=== PATIENT | female | born 1950 | race Caucasian/White ===

== ENCOUNTER → 2017-06-11 | Outpatient (REF) | payer MEDICARE, OTHER ==
[2017-06-13 00:07] LABS: Lyme Disease IgG/IgM Antibodie <0.91 ISR (0.00-0.90); Lyme Disease IgM Ab Quantitati <0.80 index (0.00-0.79)
== END ==
LOC: M LAB REF 12:29
PROVIDERS: ATTEND Internal Medicine
DX: R53.83 Other fatigue (principal)

== ENCOUNTER → 2019-07-11 | Outpatient (REF) | payer MEDICARE, OTHER | LOC: M LAB REF 15:51 | PROVIDERS: ATTEND Radiology Diagnostic Radiology | DX: C44.521 Squamous cell carcinoma of skin of breast (principal) ==

== ENCOUNTER → 2021-05-17 | Outpatient (CLI) | payer MEDICARE, OTHER ==
--- NOTE | 2021-05-17 15:43 | REPMRS ---
Patient History The patient states she had a clinical breast exam in February 2021. Patient is postmenopausal and has history of other cancer at age 65. No known family history of cancer. Benign US guided breast biopsy of the left breast, July 11, 2019. Patient states no breast complaints today. Patient has signed MRS History Sheet. Digital Woman Screen Mammo: May 17, 2021 - Exam #: [id number] Bilateral CC and MLO view(s) were taken. Technologist: Monika Saini, Technologist Prior study comparison: July 11, 2019, left breast diagnostic unilateral mammo, performed at [facility]. July 11, 2019, left breast ultrasound, performed at [facility]. July 07, 2019, bilateral digital mammo screening bilat, performed at [facility]. April 03, 2018, bilateral digital mammo screening bilat, performed at [facility]. Screening. Digital screening (2D) mammography was performed bilaterally in the CC and MLO projections. Additionally, breast tomosynthesis (3D mammography) was performed bilaterally in the CC and MLO projections. Todays exam was compared to the prior exam/exams. By history, the patient has no complaints of a palpable breast abnormality or other significant breast complaints. The breasts are unchanged in size and shape. Once again, dense heterogenous fibroglandular elements are seen bilaterally in a stable appearing pattern but to such a degree that the sensitivity of the mammogram in detecting cancer is decreased..There are no justice-soft tissue densities or spiculated masses. There is no internal architectural distortion. Once again, stable benign appearing calcifications are seen.There are no suspicious justice-calcific clusters. Skin thickening or nipple retraction is not present. IMPRESSION: BI-RADS Category 2- Benign Findings. There is no evidence of malignant alteration of the breasts. Followup examination recommended in one year. The Volpara volumetric breast density category is C, the breasts are heterogenously dense which may obscure small masses. This mammogram was read with the assistance of [employer],an FDA approved computer aided detection system for mammography. The lifetime Tyrer-Cuzick score is 5.2 % Due to the density of the breasts or Tyrer Cuzick score of 20% or greater, MRI/whole breast screening ultrasound is warranted. Negative x-ray reports should not delay surgical consultation if a dominant or clinically suspicious mass is present. Not all breast cancers can be identified by mammography. Therefore, we recommend that you continue to perform regular breast self-examination and physical examination and then promptly contact your physician of any concerns or changes. Adenosis and dense breasts may obscure an underlying neoplasm. Assessment: BI-RADS/ACR category 2 mammogram. Benign Findings. Recommendation Routine screening mammogram of both breasts in 1 year. Electronically Signed By: Jordi Garcia DO 05/17/21 [id number]
== END ==
LOC: M WHC 14:37
PROVIDERS: ATTEND Internal Medicine
DX: Z12.31 Encounter for screening mammogram for malignant neoplasm of breast (principal); Z78.0 Asymptomatic menopausal state; Z85.89 Personal history of malignant neoplasm of other organs and systems; Z86.018 Personal history of other benign neoplasm; R92.1 Mammographic calcification found on diagnostic imaging of breast

== ENCOUNTER → 2021-06-15 | Outpatient (CLI) | payer MEDICARE, OTHER ==
[~2021-06-15] MED LIST: ACET650T61 PO; BUPR150T12 PO; CITA20TA6 PO; LISI20TA33 PO; MULTTAB12 PO; ROSU5TAB5 PO; ULTR5TAB PO
== END ==
LOC: M LABSMTC 09:46
PROVIDERS: ATTEND Anesthesiology
DX: Z20.828 Contact with and (suspected) exposure to other viral communicable diseases (principal); Z11.59 Encounter for screening for other viral diseases

== ENCOUNTER 2021-06-20 08:52 | Day surgery (SDC) | payer MEDICARE, OTHER ==
[~2021-06-20] VITALS: Ht 157.5 cm; Wt 67.6 kg
[~2021-06-20 08:52] MED LIST changes: +NS 1,000 ML IV ONE
[2021-06-20] MEDS ORDERED: LIDOCAINE 2% 100MG/5ML SDV (FOR ANES.) As Ordered ONE (09:35)
[2021-06-20] MEDS ORDERED: propofoL 200 MG/20 ML VIAL As Ordered ONE (09:36)
--- NOTE | 2021-06-20 09:59 | ROOR ---
Patient Name: Bette Silva Procedure Date: 06/20/2021 9:35 AM Date of : 1950 Age: 71 Room: [facility] Gender: Female Note Status: Finalized Procedure: Colonoscopy Indications: High risk colon cancer surveillance: Personal history of colonic polyps Providers: Ang Bernabe Jr, MD Referring MD: Amanda GONZALEZ MD Requesting Provider: Medicines: Propofol per Anesthesia Complications: No immediate complications. Procedure: Pre-Anesthesia Assessment: - Prior to the procedure, a History and Physical was performed, and patient medications and allergies were reviewed. The patient is competent. The risks and benefits of the procedure and the sedation options and risks were discussed with the patient. All questions were answered and informed consent was obtained. Patient identification and proposed procedure were verified by the physician and the nurse in the pre-procedure area and in the procedure room. Mental Status Examination: alert and oriented. Airway Examination: normal oropharyngeal airway and neck mobility. Respiratory Examination: clear to auscultation. CV Examination: normal. ASA Grade Assessment: II - A patient with mild systemic disease. After reviewing the risks and benefits, the patient was deemed in satisfactory condition to undergo the procedure. The anesthesia plan was to use moderate sedation / analgesia (conscious sedation). Immediately prior to administration of medications, the patient was re-assessed for adequacy to receive sedatives. The heart rate, respiratory rate, oxygen saturations, blood pressure, adequacy of pulmonary ventilation, and response to care were monitored throughout the procedure. The physical status of the patient was re-assessed after the procedure. The Colonoscope was introduced through the anus and advanced to the cecum, identified by appendiceal orifice and ileocecal valve. The colonoscopy was performed without difficulty. The patient tolerated the procedure well. The quality of the bowel preparation was adequate. Findings: The rectum, descending colon, transverse colon, ascending colon, cecum, appendiceal orifice and ileocecal valve appeared normal. Two polyps were found in the recto-sigmoid colon and sigmoid colon. The polyps were small in size. These polyps were removed with a cold snare. Resection and retrieval were complete. Multiple small and large-mouthed diverticula were found in the sigmoid colon. Impression: - The rectum, descending colon, transverse colon, ascending colon, cecum, appendiceal orifice and ileocecal valve are normal. - Two small polyps at the recto-sigmoid colon and in the sigmoid colon, removed with a cold snare. Resected and retrieved. - Diverticulosis in the sigmoid colon. Recommendation: - Discharge patient to home (ambulatory). - Repeat colonoscopy in 5 years for surveillance. Procedure Code(s): --- Professional --- 84045, Colonoscopy, flexible; with removal of tumor(s), polyp(s), or other lesion(s) by snare technique Diagnosis Code(s): --- Professional --- Z86.010, Personal history of colonic polyps K63.5, Polyp of colon K57.30, Diverticulosis of large intestine without perforation or abscess without bleeding CPT copyright 2019 [employer]. All rights reserved. The codes documented in this report are preliminary and upon wheel filler review may be revised to meet current compliance requirements. Ang Bernabe MD Ang Bernabe Jr, MD 06/20/2021 9:59:13 AM Electronically signed by Ang Bernabe Jr, MD Number of Addenda: 0 Note Initiated On: 06/20/2021 9:35 AM Estimated Blood Loss: Estimated blood loss: none. Estimated blood loss: none.
[2021-06-20 10:15] VITALS: BP 139/66
== END 2021-06-20 10:40 | disposition home or self-care (01) ==
LOC: M OPP 08:52
PROVIDERS: ATTEND Surgery
DX: Z12.11 Encounter for screening for malignant neoplasm of colon (principal); Z86.010 Personal history of colon polyps; K63.5 Polyp of colon; K57.30 Diverticulosis of large intestine without perforation or abscess without bleeding; Z79.899 Other long term (current) drug therapy; Z87.891 Personal history of nicotine dependence

== ENCOUNTER → 2022-06-19 | Outpatient (CLI) | payer MEDICARE, OTHER ==
[~2022-06-19] MED LIST changes: -NS 1,000 ML IV ONE
== END ==
LOC: M WHC 07:03
PROVIDERS: ATTEND Internal Medicine
DX: Z12.31 Encounter for screening mammogram for malignant neoplasm of breast (principal); R92.2 Inconclusive mammogram

== ENCOUNTER → 2023-03-24 | Outpatient (REF) | payer MEDICARE, OTHER | LOC: M LAB REF 12:34 | PROVIDERS: ATTEND Internal Medicine | DX: M19.90 Unspecified osteoarthritis, unspecified site (principal) ==

== ENCOUNTER → 2023-03-25 | Outpatient (CLI) | payer MEDICARE, OTHER | LOC: M PLAIMG 11:35 | PROVIDERS: ATTEND Internal Medicine | DX: M54.50 Low back pain, unspecified (principal); N39.0 Urinary tract infection, site not specified ==

== ENCOUNTER → 2023-06-29 | Outpatient (CLI) | payer MEDICARE, OTHER | LOC: M WHC 12:51 | PROVIDERS: ATTEND Internal Medicine | DX: Z12.31 Encounter for screening mammogram for malignant neoplasm of breast (principal); Z13.820 Encounter for screening for osteoporosis; Z78.0 Asymptomatic menopausal state ==

== ENCOUNTER → 2023-07-07 | Outpatient (REF) | payer MEDICARE, OTHER | LOC: M LAB REF 16:21 | PROVIDERS: ATTEND Internal Medicine | DX: R74.8 Abnormal levels of other serum enzymes (principal); K76.0 Fatty (change of) liver, not elsewhere classified ==

== ENCOUNTER → 2023-07-08 | Outpatient (REF) | payer MEDICARE, OTHER ==
[2023-07-08 12:35] LABS: APPEARANCE, URINE CLEAR (CLEAR); BACTERIA, URINE AUTO NEGATIVE (NEGATIVE); BILIRUBIN, URINE AUTO NEGATIVE (NEGATIVE); BLOOD, URINE BLOOD NEGATIVE (NEGATIVE); COLOR, URINE YELLOW (YELLOW); GLUCOSE, URINE (UA) AUTO NEGATIVE (NEGATIVE); KETONE, URINE AUTO NEGATIVE (NEGATIVE); LEUKOCYTE ESTERASE, URINE AUTO NEGATIVE (NEGATIVE); NITRITE, URINE AUTO NEGATIVE (NEGATIVE); PROTEIN, URINE AUTO NEGATIVE (NEGATIVE); RBC, URINE AUTO 1 /HPF (0-3); SQUAMOUS EPITHELIAL CELL UR AU 0 /HPF (0-6); UROBILINOGEN, URINE AUTO 0.2 mg/dL (0.0-2.0); WBC, URINE AUTO 0 /HPF (0-3)
== END ==
LOC: M LAB REF 12:04
PROVIDERS: ATTEND Internal Medicine
DX: R31.9 Hematuria, unspecified (principal)

== ENCOUNTER → 2024-07-15 | Outpatient (CLI) | payer MEDICARE, OTHER ==
[~2024-07-15] MED LIST changes: +ROSU5TAB40 PO; -ROSU5TAB5 PO
== END ==
LOC: M WHC 13:04
PROVIDERS: ATTEND Internal Medicine
DX: Z12.31 Encounter for screening mammogram for malignant neoplasm of breast (principal); N63.20 Unspecified lump in the left breast, unspecified quadrant; R92.8 Other abnormal and inconclusive findings on diagnostic imaging of breast; R92.333 Mammographic heterogeneous density, bilateral breasts

== ENCOUNTER → 2024-08-08 | Outpatient (CLI) | payer MEDICARE, OTHER ==
[~2024-08-08] MED LIST changes: -ROSU5TAB40 PO; +ROSU5TAB49 PO
== END ==
LOC: M WHC 12:31
PROVIDERS: ATTEND Internal Medicine
DX: Z12.31 Encounter for screening mammogram for malignant neoplasm of breast (principal); N63.21 Unspecified lump in the left breast, upper outer quadrant
CPT/HCPCS: 76642; 77065; G0279

== ENCOUNTER → 2024-08-18 | Outpatient (CLI) | payer MEDICARE, OTHER ==
[2024-08-18 08:06] VITALS: TEMP 98.5
[2024-08-18 09:22] VITALS: BP 144/82; O2SAT 99
== END ==
LOC: M WHCPRO 07:51
PROVIDERS: ATTEND Internal Medicine
DX: R92.2 Inconclusive mammogram (principal); N63.22 Unspecified lump in the left breast, upper inner quadrant; N63.24 Unspecified lump in the left breast, lower inner quadrant; D24.2 Benign neoplasm of left breast

== ENCOUNTER → 2024-10-17 | Outpatient (REF) | payer MEDICARE, OTHER ==
[2024-10-17 13:50] LABS: URIC ACID 4.7 MG/DL (3.1-7.8)
[2024-10-17 13:52] LABS: RHEUMATOID FACTOR QUANT 4.6 IU/ML (<14)
[2024-10-17 13:53] LABS: C REACTIVE PROTEIN QUANTITATIV < 0.50 MG/DL (<1.0)
[2024-10-18 15:02] LABS: ANA SCREEN, IFA NEGATIVE (NEGATIVE)
[2024-10-18 23:13] LABS: CYCLIC CITRULLINATED PEPTIDE < 16 UNITS (<20)
== END ==
LOC: M LAB REF 12:14
PROVIDERS: ATTEND Internal Medicine
DX: M19.90 Unspecified osteoarthritis, unspecified site (principal)

== ENCOUNTER → 2024-10-24 | Outpatient (REF) | payer MEDICARE, OTHER | LOC: M LAB REF 16:19 | PROVIDERS: ATTEND Internal Medicine | DX: R74.8 Abnormal levels of other serum enzymes (principal) ==